=== PATIENT | male | born 1940 | race Caucasian/White ===

== ENCOUNTER 2016-06-09 02:36 | Emergency (ER) | payer MEDICARE ==
[2016-06-09] MEDS ORDERED: ONDANSETRON 4 MG TAB.RAPDIS SL ONE (02:52)
[2016-06-09] MEDS ORDERED: NORMAL SALINE 1000 ML 1,000 ML IV PRN (02:52)
--- NOTE | 2016-06-09 02:56 | ER Document Report ---
ED Flu Like - General Stated Complaint: FLU LIKE SYMPTOMS Time seen by provider: 02:54 Mode of Arrival: Medic Information source: Patient TRAVEL OUTSIDE OF THE [place] IN LAST 30 DAYS: No - HPI Patient complains to provider of: body aches, cough, vomiting Onset: Other - 2 weeks Timing/Duration: Persistent Quality of pain: Achy Severity: Mild Pain Level: 2 Associated symptoms: Body/muscle aches, Chest pain, Chills, Nonproductive cough , Nausea, Vomiting, Shortness of breath Similar symptoms previously: No Recently seen / treated by doctor: No Notes: Patient is a 75-year-old male with a history of hypertension and coronary artery disease, who presents to the emergency room complaining of flulike symptoms 2 weeks with a nonproductive cough, pain with deep breathing, chest wall pain, vomiting 2 today, nausea, epigastric abdominal pain, he denies a fever - Related Data Allergies/Adverse Reactions: No Known Allergies Allergy (Verified 04/15/13 22:57) Past Medical History - General Information source: Patient - Social History Smoking Status: Current Every Day Smoker Family History: Other - Past Medical History Cardiac Medical History: Reports: Hx Heart Attack - x3, Hx Hypercholesterolemia , Hx Hypertension Pulmonary Medical History: Denies: Hx Tuberculosis Neurological Medical History: Denies: Hx Seizures Psychiatric Medical History: Denies: Hx Depression Past Surgical History: Reports: Hx Appendectomy, Hx Cardiac Surgery - stents x3 - Immunizations Hx Diphtheria, Pertussis, Tetanus Vaccination: No Hx Pneumococcal Vaccination: 02/08/13 Review of Systems - Review of Systems Constitutional: Chills EENT: Nose congestion Cardiovascular: Chest pain Respiratory: Short of breath Gastrointestinal: Abdominal pain, Nausea, Vomiting Genitourinary: No symptoms reported Male Genitourinary: No symptoms reported Musculoskeletal: No symptoms reported Skin: No symptoms reported Hematologic/Lymphatic: No symptoms reported Neurological/Psychological: No symptoms reported -: Yes All other systems reviewed and negative Physical Exam - Vital signs Vitals: Temp Pulse Resp BP Pulse Ox 97.4 F 93 16 123/70 97 06/09/16 02:39 06/09/16 02:39 06/09/16 02:39 06/09/16 02:39 06/09/16 02:39 Interpretation: Normal - General General appearance: Appears well, Alert - HEENT Head: Normocephalic, Atraumatic Eyes: Normal Pupils: PERRL - Respiratory Respiratory status: No respiratory distress Chest status: Tender - Tender to palpate midsternal Breath sounds: Normal Chest palpation: Normal - Cardiovascular Rhythm: Regular Heart sounds: Normal auscultation Murmur: No - Abdominal Inspection: Normal Distension: No distension Bowel sounds: Normal Tenderness: Tender - Epigastric Organomegaly: No organomegaly - Back Back: Normal, Nontender - Extremities General upper extremity: Normal inspection, Nontender, Normal color, Normal ROM , Normal temperature General lower extremity: Normal inspection, Nontender, Normal color, Normal ROM , Normal temperature, Normal weight bearing. No: Aniket's sign - Neurological Neuro grossly intact: Yes Cognition: Normal Orientation: AAOx4 Yeyo Coma Scale Eye Opening: Spontaneous Pringle Coma Scale Verbal: Oriented Yeyo Coma Scale Motor: Obeys Commands Yeyo Coma Scale Total: 15 Speech: Normal Motor strength normal: LUE, RUE, LLE, RLE Sensory: Normal - Psychological Associated symptoms: Normal affect, Normal mood - Skin Skin Temperature: Warm Skin Moisture: Dry Skin Color: Normal Course - Re-evaluation Re-evalutation: 06/09/16 05:30 Patient reports feeling much better and wants to go home, states his breathing is improved and he is no longer nauseated or having symptoms of heartburn, will be discharged with a Zofran dose pack and albuterol inhaler, he recently was prescribed Augmentin by his primary care provider for his sinus infection, he was advised to continue taking that medication, follow up with his primary care provider or return if symptoms worsen, patient and at bedside acknowledge understanding and agreement with this plan - Vital Signs Vital signs: Temp Pulse Resp BP Pulse Ox 97.4 F 93 20 121/56 L 98 06/09/16 02:39 06/09/16 02:39 06/09/16 05:09 06/09/16 05:09 06/09/16 05:09 - Laboratory Result Diagrams: 06/09/16 03:19 06/09/16 03:19 Laboratory results interpreted by me: 06/09/16 06/09/16 06/09/16 03:19 03:19 04:41 MCV 98 H Plt Count 148 L BUN 27 H Creatine Kinase 48 L Lipase 393.7 H Urine Ketones 20 H Urine Urobilinogen 2.0 H Ur Leukocyte Esterase SMALL H - Diagnostic Test Radiology reviewed: Image reviewed, Reports reviewed - EKG Interpretation by Me EKG shows normal: Sinus rhythm Rate: Normal Rhythm: NSR When compared to previous EKG there are: No significant change Discharge - Discharge Clinical Impression: Viral upper respiratory illness Nausea and vomiting Qualifiers: Vomiting type: unspecified Vomiting Intractability: non-intractable Qualified Code(s): R11.2 - Nausea with vomiting, unspecified Condition: Stable Disposition: HOME, SELF-CARE Instructions: Antinausea Medication ([facility]), Upper Respiratory Illness ([facility]), Vomiting ([facility]) Additional Instructions: Continue antibiotics as prescribed by your primary care provider, use albuterol inhaler every 4-6 hours as needed for breathing difficulty. Follow up with your primary care provider in one to 2 days. Return to the emergency room immediately if symptoms worsen or any additional concerns. Referrals: JOSE DAVID STACK MD [Primary Care Provider] - Follow up as needed
[2016-06-09 03:57] LABS: ABSOLUTE EOSINOPHILS # (AUTO) 0.3 10^3/uL (0.0-0.6); ABSOLUTE LYMPHOCYTES (AUTO) 1.3 10^3/uL (0.5-4.7); ABSOLUTE NEUT (AUTO) 5.4 10^3/uL (1.7-8.2); BASOPHILS % (AUTO) 0.5 % (0-2); EOSINOPHILS % (AUTO) 3.1 % (0-6); HEMATOCRIT 47.1 % (37.9-51.0); HEMOGLOBIN 15.5 g/dL (13.5-17.0); HGB HCT DIFFERENCE -0.6; LYMPHOCYTES % (AUTO) 16.3 % (13-45); MEAN CORPUSCULAR HEMOGLOBIN 32.3 pg (27.0-33.4); MEAN CORPUSCULAR HGB CONC 32.9 g/dL (32.0-36.0); MEAN CORPUSCULAR VOLUME 98 fl (80-97); MONOCYTES % (AUTO) 12.8 % (3-13); RED BLOOD COUNT 4.79 10^6/uL (4.35-5.55); RED CELL DISTRIBUTION WIDTH 13.8 % (11.5-14.0); SEGMENTED NEUTROPHILS % (AUTO) 67.3 % (42-78)
[2016-06-09] MEDS ORDERED: METOCLOPRAMIDE HCL INJ/PF 10 MG/2 ML SDV IV ONE (04:05)
[2016-06-09] MEDS ORDERED: FAMOTIDINE INJ/PF 20 MG/2 ML SDV IV ONE (04:05)
[2016-06-09 04:06] LABS: ALANINE AMINOTRANSFERASE 41 U/L (21-72); ALBUMIN 3.6 g/dL (3.5-5.0); ALKALINE PHOSPHATASE 113 U/L (38-126); ANION GAP 11 (5-19); ASPARTATE AMINO TRANSFERASE 33 U/L (17-59); BILIRUBIN,TOTAL 0.4 mg/dL (0.2-1.3); BLOOD UREA NITROGEN 27 mg/dL (7-20); CALCIUM 9.2 mg/dL (8.4-10.2); CARBON DIOXIDE 26 mmol/L (22-30); CHLORIDE 102 mmol/L (98-107); CREATINE KINASE 48 U/L (55-170); CREATININE RESULT 0.91 mg/dL (0.52-1.25); GLUCOSE 100 mg/dL (75-110); LIPASE 393.7 U/L (23-300); POTASSIUM 4.2 mmol/L (3.6-5.0); SODIUM 138.7 mmol/L (137-145); TOTAL PROTEIN 6.3 g/dL (6.3-8.2)
[2016-06-09 04:07] LABS: ALCOHOL < 10 mg/dL (NONE DETECTED)
[2016-06-09 04:16] LABS: TROPONIN I < 0.012 ng/mL
[2016-06-09] MEDS ORDERED: IPRATROPIUM/ALBUTEROL 0.5-2.5 MG/3 ML AMPUL NEB ONE (04:24)
[2016-06-09 05:02] LABS: APPEARANCE,URINE CLEAR; BILIRUBIN,URINE NEGATIVE (NEGATIVE); GLUCOSE, URINE NEGATIVE (NEGATIVE); KETONES,URINE 20 mg/dL (NEGATIVE); LEUKOCYTE ESTERASE,URINE SMALL (NEGATIVE); NITRITE,URINE NEGATIVE (NEGATIVE); PROTEIN,URINE NEGATIVE (NEGATIVE); URINE SPECIFIC GRAVITY 1.027
[2016-06-09] MEDS ORDERED: MAG HYDROX/AL HYDROX/SIMETH SUSP 30 ML UDCUP PO ONE (05:09)
[2016-06-09] MEDS ORDERED: METOCLOPRAMIDE HCL ORAL SOLN 10 MG/10 ML UDCUP PO ONE (05:09)
[2016-06-09] MEDS ORDERED: LIDOCAINE 2% VISCOUS SOLN 20 ML UDCUP PO ONE (05:09)
[2016-06-09 05:21] VITALS: BP 121/56
[2016-06-09] MEDS ORDERED: ONDANSETRON ODT 4 MG TAB (6 TAB/DSPK) PO PRN (05:30)
[2016-06-09] MEDS ORDERED: ALBUTEROL SULFATE HFA (90 MCG/PUFF) 8 GM MDI (1 MDI/ER DISP) IH SCH (06:00)
--- NOTE | 2016-06-10 00:03 | EKG REPORT ---
SEVERITY:- BORDERLINE ECG - SINUS RHYTHM BORDERLINE INFERIOR Q WAVES : Confirmed by: eLnin Rothman 10-Jun-2016 00:02:36
== END 2016-06-09 05:40 | disposition home or self-care (01) ==
LOC: ER 02:36
DX: J06.9 Acute upper respiratory infection, unspecified (principal); R11.2 Nausea with vomiting, unspecified; M79.1 Myalgia; R07.9 Chest pain, unspecified; F17.200 Nicotine dependence, unspecified, uncomplicated; E78.00 Pure hypercholesterolemia, unspecified; I10 Essential (primary) hypertension; I25.2 Old myocardial infarction
CPT/HCPCS: 93005; 94640; 99284; 96372; 96361; 96374; 96375; 36415; 87040; 87086; 82553; 80307; 82550; 83690; 85025; 80053; 81001; 84484; 87804; 71020; 93010; A9270 ×4; J3490 ×2; J2765; J7030; S0028; J7620; S0119